=== PATIENT | female | born 1990 | race Caucasian/White ===

== ENCOUNTER 2017-12-20 08:15 | Emergency (ER) | payer OTHER ==
[~2017-12-20] VITALS: Ht 160 cm; Wt 124.7 kg
[2017-12-20 08:19] VITALS: Ht 160 cm; Wt 124.7 kg
[2017-12-20 09:48] VITALS: BP 125/62
== END 2017-12-20 09:48 | disposition home or self-care (01) ==
LOC: ED 08:15
DX: B34.9 Viral infection, unspecified (principal); M54.9 Dorsalgia, unspecified
CPT/HCPCS: Q0092